=== PATIENT | male | born 1975 | race Caucasian/White ===

== ENCOUNTER 2023-10-06 11:22 | Emergency (ER) | payer BC ==
[2023-10-06 11:26] VITALS: BMI 27.9
[2023-10-06 13:16] LABS: PH,URINE 8.5 (5.0-8.0); URINE APPEARANCE CLEAR; URINE BILIRUBIN NEGATIVE (NEGATIVE); URINE COLOR YELLOW; URINE GLUCOSE (UA) NEGATIVE (NEGATIVE); URINE KETONE NEGATIVE (NEGATIVE); URINE LEUK ESTERASE NEGATIVE (NEGATIVE); URINE NITRITE NEGATIVE (NEGATIVE); URINE PROTEIN NEGATIVE (NEGATIVE)
[2023-10-06 14:24] VITALS: BP 153/100; PULSE 81; RESP 16; TEMP 98.7
== END 2023-10-06 14:24 | disposition home or self-care (01) ==
LOC: JER 11:22
DX: R33.9 Retention of urine, unspecified (principal)
CPT/HCPCS: 81003; 87086; 99283-25